=== PATIENT | female | born 1990 | race Caucasian/White ===

== ENCOUNTER 2018-10-17 15:48 | Emergency (ER) | payer SELFPAY | END 2018-10-17 17:32 | disposition home or self-care (01) | LOC: ERS 15:48 | DX: J02.9 Acute pharyngitis, unspecified (principal); F17.210 Nicotine dependence, cigarettes, uncomplicated; D64.9 Anemia, unspecified; F41.9 Anxiety disorder, unspecified; F43.10 Post-traumatic stress disorder, unspecified; F32.9 Major depressive disorder, single episode, unspecified | CPT/HCPCS: 87081; 87430; 99283 ==